=== PATIENT | female | born 1965 | race Caucasian/White ===

== ENCOUNTER 2022-08-02 05:10 | Observation (INO) ==
--- NOTE | 2022-07-05 11:30 | PAT Medication Instructions ---
Medication Instructions Date of Service July 05, 2022 Home Medications Medication Instructions Recorded fluoxetine 10 mg capsule 10 mg PO DAILY 90 days #90 caps 08/17/21 interferon beta-1a 30 mcg/0.5 mL 0.5 ml IM .COMPLEX 28 days #2 ea 05/30/22 intramuscular syringe kit (Avonex) fluoxetine 10 mg capsule 10 mg PO DAILY cholecalciferol (vitamin D3) 50 mcg (2,000 unit) capsule 50 mcg PO QAM naproxen sodium 220 mg capsule (Aleve) 220 mg PO BID PRN Pain interferon beta-1a 30 mcg/0.5 mL intramuscular syringe kit (Avonex) 0.5 ml IM .COMPLEX multivitamin 1 tab PO QAM ASK your surgeon for instructions naproxen sodium 220 mg capsule (Aleve) 220 mg PO BID PRN Pain ASK your prescriber and surgeon interferon beta-1a 30 mcg/0.5 mL intramuscular syringe kit (Avonex) 0.5 ml IM .COMPLEX DO NOT take the morning of surgery cholecalciferol (vitamin D3) 50 mcg (2,000 unit) capsule 50 mcg PO QAM multivitamin 1 tab PO QAM Take morning of surgery With a small sip of water, OTHERWISE NOTHING TO EAT OR DRINK AFTER MIDNIGHT: fluoxetine 10 mg capsule 10 mg PO DAILY Other Notes If you have any questions please call us at [phone] or [phone] or [phone] or [phone]
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
[2022-08-02] MEDS ORDERED: dexAMETHasone 4 MG TAB PO SCH (06:00)
[2022-08-02] MEDS ORDERED: ceFAZolin 2000MG 2,000 MG/15 ML SYR IV SCH (06:00)
[2022-08-02] MEDS ORDERED: Ketorolac (*for OR use only*) 30 MG, dexAMETHasone 4 MG, KETAMINE HCL (**OR use only) 1... INFIL SCH (06:00)
[2022-08-02] MEDS ORDERED: TRANEXAMIC ACID 1,000 MG **IV Pre-op IV SCH (06:00)
[2022-08-02] MEDS ORDERED: ACETAMINOPHEN 500 MG TAB PO SCH (06:00)
[2022-08-02] MEDS ORDERED: TRANEXAMIC ACID 1,000 MG **IV Intra-op IV SCH (06:00)
[2022-08-02] MEDS ORDERED: GABAPENTIN 600 MG DOSE PO SCH (06:00)
[2022-08-02] MEDS ORDERED: LR 60ML/HR IV SCH (06:00)
[2022-08-02] MEDS ORDERED: LR 500ML BOLUS, THEN 15ML/HR IV SCH (06:00)
[2022-08-02] MEDS ORDERED: MEPIVACAINE HCL 1.5% 30 ML VIAL ONE (06:24)
[2022-08-02] MEDS ORDERED: ePHEDrine sulfate 50 MG/ML AMP IV PRN (06:35)
[2022-08-02] MEDS ORDERED: ATROPINE SULFATE 0.1 MG/ML 10ML SYR IV PRN (06:35)
[2022-08-02] MEDS ORDERED: ONDANSETRON INJ 2 MG/ML 2 ML VIAL IV PRN (06:35)
--- NOTE | 2022-08-02 06:37 | History & Physical Bridge Note ---
Date of Service August 02, 2022 History & Physical Bridge Note I have examined the patient, reviewed the History & Physical and in the interval since the performance of the History & Physical I have noted the following changes of clinical significance: no changes noted
[2022-08-02] MEDS ORDERED: ORTHO JOINT ANESTHETIC ONE (06:38)
[2022-08-02] MEDS ORDERED: MIDAZOLAM HCL 1 MG/ML 2ML VIAL ONE (06:40)
[2022-08-02] MEDS ORDERED: ACETAMINOPHEN 1000 MG/100 ML IV IV ONE (06:46)
[2022-08-02] MEDS ORDERED: fentaNYL citrate 100 MCG/2 ML VIAL ONE ×3 (06:52→08:28)
[2022-08-02] MEDS ORDERED: SUGAMMADEX SODIUM 200 MG/2 ML VIAL IV ONE (06:54)
[2022-08-02] MEDS ORDERED: GLYCOPYRROLATE 0.2 MG/ML VIAL ONE (07:17)
[2022-08-02] MEDS ORDERED: DEXAMETHASONE SOD INJ 4 MG/ML VIAL ONE (07:17)
[2022-08-02] MEDS ORDERED: ROCURONIUM BROMIDE 10 MG/ML 5 ML VIAL IV ONE (07:17)
[2022-08-02] MEDS ORDERED: ONDANSETRON INJ 2 MG/ML 2 ML VIAL ONE (07:17)
[2022-08-02] MEDS ORDERED: KETAMINE 50 MG/5 ML SYRINGE ONE (07:19)
[2022-08-02] MEDS ORDERED: BUPIVACAINE/EPINEPHRINE 0.25% 1:200,000 30 ML VIAL ONE (07:54)
--- NOTE | 2022-08-02 08:24 | Operative Report ---
PG Post Operative Report Pre & Post Diagnosis Operation Date: 08/02/22 07:00 Pre-Op Diagnosis: Right Hip Degenerative Joint Disease Post-Op Diagnosis: Right Hip Degenerative Joint Disease I identified the patient and participated in the time-out.: Yes Procedure Operation Date: 08/02/22 07:00 Actual Procedures p Right Total Hip Arthroplasty Anterior(Right) - Mariusz Ramirez DO Surgeon Mariusz Ramirez DO Showroom Sales Consultant Mariusz Diaz PA-C Estimated Blood Loss 250 Findings Consistent with Post-Op Diagnosis Specimens Right femoral head Description of Procedure Implants used I used a ZimmerBiomet total hip arthroplasty system with a size 2 high offset Avenir Complete stem, a 50 mm G7 cup with a 25mm screw, an E1 polyethylene liner, a 36 mm ceramic head with a -3.5 neck. Vannessa arrived at the hospital for the above procedure. She was seen in the preoperative holding area and the operative extremity was identified and signed. She was given a preoperative antibiotic, and TXA. She was then taken back to the operating room and laid on the table in the supine position. She was given general anesthesia. The operative leg was secured to a Puristst leg positioner. The hip was then prepped and draped in sterile fashion. A timeout was done and the patient and the operative extremity was properly identified. An anterior approach was used. Dissection was taken down through the fascia and the tensor muscle belly was retracted laterally and the rectus was retracted medially. The circumflex vessels were identified and ligated. The capsule was then incised and tagged for later repair. The femoral neck was then cut and the femoral head was removed. The acetabulum was exposed. Time was spent doing a complete circumferential labral release. Sequential reaming of the acetabulum up to a size 49 reamer was done. Final reamings were done under fluoroscopy to ensure appropriate version. A Biomet 50 mm G7 cup was then impacted into place. A single 25 mm screw was placed. The E1 polyethylene liner was then snapped into place. Surrounding soft tissues were then injected with 100 cc of an orthopedic pain control cocktail. The proximal femur was then exposed. Sequential broaching up to a size 2 broach was done. Off that broach a size 36 head with a -3.5 neck was trialed. The hip was reduced and fluoroscopic images showed anatomic alignment of the implants in acceptable length. The broach was removed. The final size 2 high offset Avenir Complete stem was then impacted into place. A ceramic 36 mm head with a -3.5 neck was then impacted onto the stem and the hip was reduced. Final fluoroscopic images showed anatomic alignment of the hip. The capsule was then closed with #1 Vicryl suture. A dilute betadyne lavage was then done for 3 minutes. The joint was then irrigated with normal saline solution. The fascia was closed with #1 PDS suture. Skin was closed with 2-0 Vicryl, deandra, and a Silverlon dressing. She was then transferred to a hospital bed and taken to the post anesthesia care unit in stable condition. She tolerated the procedure well. Mariusz Diaz PA-C, was present for the entire procedure. He was critical for patient positioning, prepping, draping, retraction exposure, wound closure and application of sterile dressing. I attest to the content of the Intraoperative Record and any orders documented therein. Any exceptions are noted below.
[2022-08-02] MEDS: fentaNYL citrate 100 MCG/2 ML VIAL IV PRN ×6 (08:54→09:27)
[2022-08-02] MEDS ORDERED: APREPITANT 40 MG CAP PO SCH (09:00)
[2022-08-02] MEDS: oxyCODONE/ACETAMINOPHEN 5mg/325mg TAB PO PRN ×2 (10:15→16:28)
--- NOTE | 2022-08-02 10:44 | Fluoroscopy Report ---
FL hip RT 1V CLINICAL HISTORY: Right total arthroplasty. COMPARISON STUDY: None. FLUOROSCOPY TIME: 24 seconds. FINDINGS: 2 fluoroscopic spot images of the right hip demonstrate a right total arthroplasty. The rahel dware is intact. No fracture or dislocation. IMPRESSION: Fluoroscopic assistance provided for right total hip arthroplasty. ACT 112: Negative or not required by law. Electronically signed by: Maurice Lockwood M.D. 08/02/2022 10:42 AM
--- NOTE | 2022-08-02 10:44 | XRay Report ---
AP PELVIS, CROSSTABLE LATERAL RIGHT HIP History: Right total hip arthroplasty. Degenerative arthritis. Postop. FINDINGS: The patient is status post a right total hip arthroplasty. The hardware is intact. No fract ure or dislocation. Skin deandra are in place. IMPRESSION: Right total hip arthroplasty. No evidence for hardware complication ACT 112: Negative or not required by law. Electronically signed by: Maurice Lockwood M.D. 08/02/2022 10:43 AM
--- NOTE | 2022-08-02 13:16 | Anesthesiology Progress Note ---
Date of Service August 02, 2022 Anesthesia Post Procedure Vital Signs Vital Signs: Temp Pulse Pulse Resp BP Pulse Ox O2 Del Method 08/02/22 12:15 36.6 C 82 16 127/90 92 Room Air 08/02/22 10:50 68 18 121/78 95 Room Air 08/02/22 10:20 36.5 C 68 18 125/81 96 Room Air 08/02/22 09:50 36.5 C 72 18 117/71 98 Room Air 08/02/22 09:35 36.4 C L 63 12 124/72 94 Room Air 08/02/22 09:25 68 15 112/67 97 Room Air 08/02/22 09:15 69 14 127/67 99 Room Air 08/02/22 08:55 85 18 134/77 99 Oxymask 08/02/22 09:05 83 20 122/63 98 Room Air 08/02/22 08:47 36.4 C L 87 21 130/105 H 99 Oxymask 08/02/22 05:38 36.5 C 68 20 129/90 98 Room Air O2 Flow Rate 08/02/22 12:15 08/02/22 10:50 08/02/22 10:20 08/02/22 09:50 08/02/22 09:35 08/02/22 09:25 08/02/22 09:15 08/02/22 08:55 6 08/02/22 09:05 08/02/22 08:47 6 08/02/22 05:38 Pain Intensity Right Hip: Pain Intensity: 2 Transfer of Care Handoff Completed per policy Notes Mental Status: alert / awake / arousable and participated in evaluation Patient Amnestic to Procedure: Yes Nausea / Vomiting: adequately controlled Pain: adequately controlled Airway Patency, RR, SpO2: stable & adequate BP & HR: stable & adequate Hydration State: stable & adequate Anesthetic Complications: no major complications apparent and Pt Satisfied with anesthetic care
[2022-08-02] MEDS ORDERED: NALOXONE HCL 0.4 MG/1 ML VIAL/CARP IV PRN (16:42)
[2022-08-02] MEDS ORDERED: MAGNESIUM HYDROXIDE SUSP 30 ML UDC PO PRN (16:42)
[2022-08-02] MEDS ORDERED: bisacodyL 10 MG SUPP PR PRN (16:42)
[2022-08-02] MEDS ORDERED: METOCLOPRAMIDE HCL INJ 5 MG/ML 2 ML VIAL IV PRN (16:42)
[2022-08-02] MEDS ORDERED: HYDROmorphone INJ 0.5 MG/0.5 ML SYR IV PRN (16:42)
[2022-08-02] MEDS ORDERED: oxyCODONE/ACETAMINOPHEN 5mg/325mg TAB PO PRN (16:42)
[2022-08-02] MEDS ORDERED: INTERFERON BETA 30 MCG/0.5 ML IM SCH (16:42)
[2022-08-02] MEDS: SODIUM CHLORIDE 0.9% 1000ML 1,000 ML IV SCH (17:12)
[2022-08-02] MEDS: ceFAZolin 2000MG 2,000 MG/15 ML SYR IV SCH (18:03)
[2022-08-02] MEDS: ASPIRIN 81 MG ECTAB PO SCH (20:10)
[2022-08-02] MEDS: DOCUSATE SODIUM 100 MG CAP PO SCH (20:10)
[2022-08-02] MEDS ORDERED: SENNA 8.6 MG TAB PO SCH (21:00)
[2022-08-02] MEDS: CeleBREX 200 MG CAP PO SCH (21:28)
[2022-08-03] MEDS: ceFAZolin 2000MG 2,000 MG/15 ML SYR IV SCH (01:07)
[2022-08-03] MEDS: ACETAMINOPHEN 500 MG TAB PO PRN ×2 (03:42→09:53)
[2022-08-03] MEDS: SODIUM CHLORIDE 0.9% 1000ML 1,000 ML IV SCH (04:02)
[2022-08-03] MEDS: CeleBREX 200 MG CAP PO SCH (08:00)
[2022-08-03] MEDS: DOCUSATE SODIUM 100 MG CAP PO SCH (08:00)
[2022-08-03] MEDS: ASPIRIN 81 MG ECTAB PO SCH (08:00)
--- NOTE | 2022-08-03 08:48 | Orthopedic Progress Note ---
Date of Service August 03, 2022 Assessment & Plan (1) Status post right hip replacement: Overall she is doing very well. She is having much pain in the right hip. She will be seen by physical therapy today for ambulation and range of motion exercises. The dressing will be changed. She can be discharged home later today. She is on aspirin for DVT prophylaxis. She will follow-up with orthopedics in 2 weeks. Edilberto Hurd was seen and examined at bedside this morning. Overall she is doing fairly well. She is not having too much pain in the right hip. She feels much better today. She has no new complaints.. Review of Systems All systems reviewed & are unremarkable except as noted in HPI & below. Physical Exam On physical examination of the right hip, the dressing is saturated but is not leaking. A new dressing will be placed. Her leg lengths are equal. She has active dorsiflexion plantarflexion of her right ankle.. Results & Data Results & Data Laboratory Results . Diagnostic Findings Postoperative x-rays of the right hip show the prosthesis to be in anatomic alignment without any evidence of fracture, desiccation, or loosening. PG Care Time/CCT Total # of Minutes Spent Total Time Spent with Patient: Total time spent is greater than 50% in coordination of care (as documented) at patient's floor/unit and/or counseling patient: Coding Level of Care Code 00625 Post Operative Follow-Up Diagnoses Status post right hip replacement Z96.641
--- NOTE | 2022-08-03 08:50 | Discharge Summary ---
Date of Service August 03, 2022 Principal Diagnosis Same as "Discharge Diagnosis" noted below under Discharge Instructions. Discharge Exam On physical examination of the right hip, the dressing is saturated but is not leaking. A new dressing will be placed. Her leg lengths are equal. She has active dorsiflexion plantarflexion of her right ankle.. Discharge Data Procedures Performed Operation Date: 08/02/22 07:00 Actual Procedures p Right Total Hip Arthroplasty Anterior(Right) - Mariusz Ramirez DO Ordered Studies 08/02/22 07:00 FL hip RT 1V Routine Hospital Course (1) Status post right hip replacement: On August 02, 2022 Vannessa arrived at [facility] and underwent a right hip replacement without complication. She had a general anesthetic. Postoperatively she was at our outpatient joint protocol. Unfortunately she had difficulty waking up from the anesthesia. She felt dizzy with she got up to ambulate. The decision was made to admit her overnight. On postop day #1 she was doing well. Her vital signs were stable. She was feeling much better. She was able to participate well with physical therapy doing ambulation and range of motion exercises. She was then discharged home. She will follow-up with orthopedics in 2 weeks. PG Care Time/CCT Total # of Minutes Spent Total Time Spent with Patient: Total time spent is greater than 50% in coordination of care (as documented) at patient's floor/unit and/or counseling patient: Discharge Plan Discharge Items Patient Disposition: Home - Home Health Services Reason For Visit: Right Hip Degenerative Joint Disease Discharge Diagnosis: Right hip replacement Activity: Per Instructions section Non-emergency contact: Surgeon Call non-emergency contact if: your wound has increased redness and your wound has increased drainage Follow-up/Referrals: [facility] [Outside] (per office) Justyn Gilliam MD [Primary Care Provider] - Mariusz Ramirez DO [Physician] - Diet: Regular Addtl Attending Provider Instructions: Activity and Therapy Recommendations: * If you are using [facility] then therapy will be provided at your home until they feel you have accomplished all of your goals. * If you are using [facility] then Physical Therapy will be provided until they feel you are ready to start Outpatient Physical Therapy. * If you are not using home therapy then Outpatient Physical Therapy should start about 3-5 days from your day of surgery. Therapy will last about 6-10 weeks * You were shown a series of exercises in the hospital. Do these exercises three times each day including the exercises you were shown in physical therapy. * Get up and walk several times each day.~ For the first four weeks, try not to stand or walk for more than one hour at a time. If you do stand or walk for more than one hour, you will not hurt anything, but your leg will likely swell.~~ * As you feel comfortable, you may change from the walker or crutches to a cane and~then to independent walking. Medications: * Narcotic You will likely be sent home from the hospital with a prescription for the narcotic pain medication that worked best throughout your stay. * Aspirin Most patients will be required to take Aspirin 81mg twice a day for 6 weeks after surgery. This is obtained [id number] and a prescription is not necessary. * Other medications may be prescribed for specific circumstances. If you have any questions, please call the office at . * Resume previous home medications unless otherwise instructed TEDs/Elastic Stockings: The white elastic stockings help limit swelling and prevent blood clots from forming in your legs. The more you wear them, the more they work. Wear them for six weeks. Dressing Care: Leave the Silverlon dressing in place for 7 days. After 7 days you may remove the dressing. If the incision is not draining then you may leave the deandra open to air. If there is a little bit of drainage or if the deandra are getting stuck on your clothing then cover the incision with a dry dressing. The deandra will be removed at your 2 week follow-up appointment. Showering: You may shower with the Silverlon dressing in place. Do not let the shower spray hit the dressing directly. Pat the Silverlon dressing dry. If the dressing becomes wet underneath, then simply remove the dressing. Keep the incision dry until you are 7 days out from the day of surgery. After 7 days you may remove the Silverlon dressing and shower with the deandra exposed. Let soapy water run over the deandra and pat them dry. Do not scrub or soak the incision. Things To Watch For: * Drainage from the incision site that occurs more than one week after your surgery. * Increased redness at the incision site. * Fever above 102 degrees Fahrenheit. * Unusual chest pain or shortness of breath. * Call [facility] at with any of the above problems Follow-Up Visit: Follow-up with Dr. Ramirez's PA (Mariusz Diaz) 2-3 weeks after your day of surgery. He will remove your deandra and answer any questions. If you have any additional questions or concerns, Dr Ramirez is usually in the office at the same time and will be available An appointment was probably scheduled when you signed-up for surgery in the office. If you have any questions call Office Instructions: More detailed instructions as well as Frequently Asked Questions were provided in a folder by our office when you signed-up for surgery. Please review these instructions when you get home. If you have any further questions or concerns, please feel free to call the office at [phone] Pending Studies at Discharge: No Stand-Alone Forms: Anesthesia/Sedation, Adult, [facility] Medications and DC Order Prescriptions: Continued fluoxetine 10 mg capsule 10 mg PO DAILY 90 Days Qty: 90 3RF Avonex 30 mcg/0.5 mL syringe kit 0.5 ml IM .COMPLEX 28 Days Qty: 2 5RF Rx Instructions: 0.5 mL IM every other week. Refrigerate. protect from light. allow to warm to room temperature prior to use.; oxycodone-acetaminophen [Percocet] 5-325 mg tablet 1 tab PO Q6H PRN (Reason: pain) Qty: 30 0RF celecoxib [Celebrex] 200 mg capsule 200 mg PO BID Qty: 28 0RF Rx Instructions: Take for two weeks after surgery aspirin 81 mg tablet,delayed release (DR/EC) 81 mg PO BID Qty: 84 0RF Rx Instructions: "haven't started yet" cholecalciferol (vitamin D3) 50 mcg (2,000 unit) capsule 50 mcg PO QAM naproxen sodium [Aleve] 220 mg capsule 220 mg PO BID PRN (Reason: Pain) multivitamin Tablet 1 tab PO QAM acetaminophen 500 mg Tablet 1,000 mg PO Q6H PRN (Reason: Pain, Mild) Discharge Orders: Discharge Order (Routine); Ordered 08/03/22 Ordered By: Mariusz Moreno/Other Patient Handouts: Preventing Deep Vein Thrombosis Admission Data Admit Date/Time: 08/02/22 14:39 Attending Provider: Mariusz Ramirez Admit Provider: Mariusz Ramirez Primary Care Provider: Justyn Gilliam
[2022-08-03] MEDS ORDERED: FLUoxetine HCL 10 MG CAP PO SCH (09:00)
[2022-08-03] MEDS ORDERED: CHOLECALCIFEROL 1,000 UNITS 25 MCG TAB PO SCH (09:00)
[2022-08-03] MEDS ORDERED: MULTIVITAMIN TAB PO SCH ×2 (09:00)
== END 2022-08-03 10:31 | disposition home health service (06) ==
LOC: ASU 05:10 → 3W 05:10